=== PATIENT | female | born 1955 | race African-American/Black ===

== ENCOUNTER 2019-08-22 03:09 | Emergency (ER) | payer SELFPAY ==
[2019-08-22 03:11] VITALS: BP 187/119; PULSE 70; RESP 18; TEMP 36.8; O2SAT 96; BMI 42.9
--- NOTE | 2019-08-22 03:18 | ED_ITS ---
Entered by Cherrie Martinez, acting as scribe for Joya Hayes MD HPI - Allergic Reaction General: Chief complaint: Allergic Reaction Stated complaint: tongue swelling Time Seen by Provider: 08/22/19 03:18 Source: patient and family Mode of arrival: ambulatory Limitations: no limitations History of Present Illness: HPI narrative: 64 yo f came to the er for an allergic reaction. Onset was around 1-2am this morning. Pt states that she takes lisinopril. Patient states that she has had no problems breathing. Tongue is minimally swollen MD complaint: allergic reaction Exposure: medication Associated symptoms: Reports tongue swelling; Deny abdominal pain, nausea or vomiting Severity: moderate Treatment prior to arrival: none Previous Allergic Reaction History: none Review of Systems General: Reports: other (negative unless marked) Const: Denies: fever, chills, body aches or change in appetite Eyes: Denies: blurry vision or eye discomfort ENMT: Denies: throat pain or dental pain Card: Denies: chest pain Resp: Denies: shortness of breath GI: Denies: abdominal pain, nausea, vomiting or diarrhea : Denies: painful urination Musc: Denies: neck pain or back pain Skin/Breast: Denies: rash Neuro: Denies: headache Psych: Denies: depression Sharath/Lymph: Denies: easy bruising All/Imm: Reports: tongue swelling PFSH ED PFSH: Statuses (acute, chronic, etc) shown below reflect problem list status as previously entered and may not be historically accurate Social History Smoking and tobacco status: never smoked Physical Exam Const: COMMON NORMALS: no apparent distress, oriented x3 and healthy appearing HENMT: COMMON NORMALS: normocephalic and head/scalp atraumatic HEAD & SCALP: normocephalic and atraumatic OTHER: Slight angioedema to her tongue mainly on the left side. No airway involvement Eye: COMMON NORMALS: PERRL and EOMs intact bilaterally PUPIL: Yes PERRL Neck/C-Spine: COMMON NORMALS: full ROM and supple Chest: COMMONS NORMALS: inspection of chest normal and palpation of chest normal Resp: COMMON NORMALS: normal respiratory effort, no retractions, no use of accessory muscles and clear to auscultation bilaterally AUSCULTATION: clear to auscultation bilaterally Cardio: COMMON NORMALS: regular rate, regular rhythm and no murmurs RATE: regular rate RHYTHM: regular rhythm GI: COMMON NORMALS: normal to inspection, nondistended, normoactive bowel sounds, soft to palpation, non-tender and no masses PALPATION: Yes soft Extremity: COMMON NORMALS: normal to inspection and full ROM Neuro: COMMON NORMALS: oriented x3, moves all extremities and no focal motor deficits Psych: COMMON NORMALS: mental status grossly normal, thought process normal and cooperative THOUGHT PROCESS: normal thought process Skin: COMMON NORMALS: no rashes or lesions noted and no wounds GENERAL SKIN EXAM: no rashes or lesions noted Course Vital Signs: Vital signs: Vital Signs Temperature 98.2 F 08/22/19 03:11 Pulse Rate 85 08/22/19 04:32 Respiratory Rate 20 H 08/22/19 04:32 Blood Pressure 187/119 08/22/19 03:11 Pulse Oximetry 98 08/22/19 04:32 MDM - Allergic Reaction MDM Narrative: Medical decision making narrative: Patient presents here with angioedema likely from her lisinopril. She is well-appearing here and has had minimal swelling. Her swelling has improved. I believe she is stable for discharge. I informed her to stop her lisinopril and will prescribe her HCTZ. She is to return to the ER if she has any worsening. She understands and agrees to this plan. Discharge Plan Discharge Patient Disposition: Home, Self-Care Clinical Impression: Angioedema Qualifiers: Encounter type: initial encounter Qualified Code(s): T78.3XXA - Angioneurotic edema, initial encounter Condition: Stable Prescriptions: New hydrochlorothiazide 25 mg tablet 25 mg PO DAILY Qty: 30 RF: 0 Discontinued lisinopril 40 mg Tablet 40 mg PO BID RF: 0 No Action atorvastatin 40 mg Tablet 40 mg PO DAILY RF: 0 metoprolol succinate 50 mg Tablet Extended Release 24 Hr 50 mg PO DAILY RF: 0 glimepiride 1 mg Tablet 1 mg PO DAILY RF: 0 amlodipine 10 mg Tablet 10 mg PO DAILY RF: 0 metformin 1,000 mg Tablet 1,000 mg PO BID RF: 0 Flonase Allergy Relief 50 mcg/actuation [place],Suspension 2 spray INTRANASAL DAILY RF: 0 hydrochlorothiazide 12.5 mg Tablet 12.5 mg PO DAILY RF: 0 potassium chloride 20 mEq Tablet Extended Release 40 meq PO DAILY RF: 0 Discharge Orders: Discharge Order (Routine); Ordered 08/22/19 Ordered By: Joya Hayes Discharge Diet: Advance as tolerated Discharge Activity: Resume usual activity Patient Instructions: Angioedema (ED) Coding Level of Care Code ED [employer] Underwriter for Chg [facility] The documentation recorded by the Juan cross Stephanie Lyn, accurately reflects the service I personally performed and the decisions made by Freddy guzman Korby, MD Aug 22, 2019 03:09
[2019-08-22 03:33] VITALS: O2SAT 98
[2019-08-22] MEDS: diphenhydrAMINE 50 mg/mL SDV 1mL IVP (03:40)
[2019-08-22] MEDS: EPINEPHrine 1 mg/mL INJ 0.3 MG IM (03:40)
[2019-08-22] MEDS: famotidine 20 mg/2 mL INJ 40 MG IVP (03:40)
[2019-08-22 04:32] VITALS: PULSE 85; RESP 20; O2SAT 98
[2019-08-22 05:24] VITALS: BP 160/92; PULSE 78; O2SAT 94
== END 2019-08-22 05:24 | disposition home or self-care (01) ==
PROVIDERS: Emergency Provider Emergency Medicine
DX: T78.3XXA Angioneurotic edema, initial encounter (principal); Z79.84 Long term (current) use of oral hypoglycemic drugs
CPT/HCPCS: 96372; 96374; 96375; 99282; 99283; J0171; J1200; J3490